=== PATIENT | female | born 1955 | race Caucasian/White ===

== ENCOUNTER 2020-01-22 06:41 | Day surgery (SDC) | payer OTHER ==
[~2020-01-22 06:41] MED LIST: Lactated Ringers 1,000 ML IV SCH; Lidocaine 1%/Sod Bicarbonate in NS 8.4% 1 ML Syringe IDERM PRN; Scopolamine 1.5 MG Transdermal Patch TOP SCH; Sodium Chloride 0.9% 10 ML Syringe FLUSH PRN
[2020-01-22] MEDS ORDERED: fentaNYL 100 MCG/2 ML SDV ONE (07:11)
[2020-01-22] MEDS ORDERED: Propofol 200 MG/20 ML SDV ONE (07:11)
[2020-01-22] MEDS ORDERED: Midazolam 1 MG/ML 2 ML SDV ONE (07:12)
[2020-01-22] MEDS ORDERED: Lidocaine 1% 4 ML ONE (07:14)
[2020-01-22] MEDS ORDERED: Succinylcholine/Sod PF 100 MG/5 ML SYRINGE IV ONE (07:14)
--- NOTE | 2020-01-22 07:34 | PCM.PREANE ---
Preanesthetic Assessment - Anesthesia/Transfusion/Family Hx Anesthesia History: Prior Anesthesia Without Reaction Transfusion History: No Prior Transfusion(s) Intubation History: Unknown - Review of Systems General: No Symptoms Pulmonary: No Symptoms Cardiovascular: No Symptoms Gastrointestinal: No Symptoms Neurological: No Symptoms Other: Reports: None - Physical Assessment NPO Status Date: 01/21/20 NPO Status Time: 22:00 Vital Signs: Last Vital Signs Temp 97.1 F 01/22/20 06:40 Pulse 71 01/22/20 06:40 Resp 16 01/22/20 06:40 BP 133/62 01/22/20 06:40 Pulse Ox 95 01/22/20 06:40 Height: 1.63 m Weight: 70.76 kg ASA Class: 2 Mental Status: Alert & Oriented x3 Airway Class: Mallampati = 2 Dentition: Reports: Normal Dentition Thyro-Mental Finger Breadths: 3 Mouth Opening Finger Breadths: 3 ROM/Head Extension: Full Lungs: Clear to Auscultation, Normal Respiratory Effort Cardiovascular: Regular Rate, Regular Rhythm - Lab Values: Laboratory Last Values COVID-19 PCR Not detected (NOT DETECT) 01/20/20 14:30 MRSA (PCR) Negative 01/09/20 09:58 - Allergies Allergies/Adverse Reactions: Allergies Allergy/AdvReac Type Severity Reaction Status Date / Time codeine Allergy Itching Verified 01/21/20 15:02 - Acknowledgements Anesthesia Type Planned: General Anesthesia, Regional Block (rt ISB preop) Pt an Appropriate Candidate for the Planned Anesthesia: Yes Alternatives and Risks of Anesthesia Discussed w Pt/Guardian: Yes Pt/Guardian Understands and Agrees with Anesthesia Plan: Yes PreAnesthesia Questionnaire HEENT History: Reports: Sinusitis Cardiovascular History: Reports: Other (See Below) Other Cardiovascular History: varicose veins Genitourinary History: Reports: UTI, Recurrent, Other (See Below) Other Genitourinary History: cystitis, dysuria, exploratory laparotomy [employer] History: Reports: , Other (See Below) Other OB/BYN History: , c section, menopausal, right break fibroadenoma removal Musculoskeletal History: Reports: Other (See Below) Other Musculoskeletal History: shoulder pain, right wrist ORIF with plate and screws Neurological History: Reports: Other (See Below) Other Neuro History: motion sickness Psychiatric History: Reports: Other (See Below) Other Psychiatric History: insomnia Endocrine/Metabolic History: Reports: Osteopenia Hematologic History: Reports: Anemia Immunologic History: Reports: None Oncologic (Cancer) History: Reports: None Dermatologic History: Reports: Other (See Below) Other Dermatologic History: candidal intertrigo - Infectious Disease History Infectious Disease History: Reports: Extended Spectrum Beta-Lactamase (ESBL) Other Infectious Disease History: + on 05/28/19 - Past Surgical History Head Surgeries/Procedures: Reports: None HEENT Surgical History: Reports: None Cardiovascular Surgical History: Reports: None Respiratory Surgical History: Reports: None GI Surgical History: Reports: Colonoscopy, Other (See Below) Other GI Surgeries/Procedures: umbilical hernia repair as Female Surgical History: Reports: Section, Tubal Ligation Neurological Surgical History: Reports: None Musculoskeletal Surgical History: Reports: None Oncologic Surgical History: Reports: None Dermatological Surgical History: Reports: None - SUBSTANCE USE Smoking Status *Q: Never Smoker Recreational Drug Use History: No - HOME MEDS Home Medications: Home Meds Acetaminophen/Diphenhydramine [Tylenol Pm Ex-Strength Caplet] 1 tab PO BEDTIME 01/21/20 [History] Alendronate Sodium 70 mg PO TH 01/21/20 [History] Betamethasone/Clotrimazole [Lotrisone] 1 dose TOP BID PRN 01/21/20 [History] Calcium Citrate 400 mg PO DAILY 01/21/20 [History] Cholecalciferol (Vitamin D3) [Vitamin D3] 5,000 unit PO DAILY 01/21/20 [History] atorvaSTATin Calcium [Atorvastatin Calcium] 20 mg PO BEDTIME 01/21/20 [History] Acetaminophen/HYDROcodone [Hart 325-5 MG] 1 - 2 tab PO Q6H PRN #40 tablet 01/22/20 [Rx] - CURRENT (IN HOUSE) MEDS Current Meds: Current Medications Lactated Ringer's (Ringers, Lactated) 1,000 mls @ 125 mls/hr IV ASDIRECTED YOANDY Stop: 01/22/20 23:00 Lidocaine/Sodium Bicarbonate (Buffered Lidocaine 1% In Ns 8.4%) 0.25 ml IDERM ONETIME PRN PRN Reason: Prior to IV Start Stop: 01/22/20 18:00 Scopolamine (Transderm-Scop) 1.5 mg TOP ONETIME YOANDY Stop: 01/22/20 18:00 Last Admin: 01/22/20 06:56 Dose: 1.5 mg Documented by: Sodium Chloride (Saline Flush) 10 ml FLUSH ASDIRECTED PRN PRN Reason: Keep Vein Open Stop: 01/22/20 18:00 Discontinued Medications Fentanyl (Sublimaze) Confirm Administered Dose 100 mcg .ROUTE .STK-MED ONE Stop: 01/22/20 07:12 Lidocaine HCl (Xylocaine-Mpf 1%) Confirm Administered Dose 4 mls @ as directed .ROUTE .STK-MED ONE Stop: 01/22/20 07:15 Midazolam HCl (Versed 1 Mg/Ml) Confirm Administered Dose 4 mg .ROUTE .STK-MED ONE Stop: 01/22/20 07:13 Propofol (Diprivan 20 Ml) Confirm Administered Dose 200 mg .ROUTE .STK-MED ONE Stop: 01/22/20 07:12
[2020-01-22] MEDS ORDERED: Ropivacaine 0.5% 5 MG/ML 30 ML SDV ONE (07:39)
[2020-01-22] MEDS ORDERED: Lactated Ringers 1,000 ML ONE (08:32)
[2020-01-22] MEDS ORDERED: Ondansetron 4 MG/2 ML SDV ONE (08:33)
[2020-01-22] MEDS ORDERED: ceFAZolin 1 GM Vial ONE (08:40)
[2020-01-22] MEDS ORDERED: fentaNYL 100 MCG/2 ML SDV IVPUSH PRN (09:02)
--- NOTE | 2020-01-22 09:08 | PCM.PRNOTE ---
- Free Text/Narrative Note: Postoperative regional pain control requested by surgeon. Pre-op Dx: Right Rotator cuff tear Surgical procedure: Right Rotator cuff repair with subacromial decompression Procedure: Rt Interscalene block with U/S guidance Requesting physician: Dr. Aquino Ct Risks and benefits discussed with the patient preoperatively including infection, bleeding, incomplete or failed block, possible nerve damage, local anesthetic toxicity. Chart reviewed, VS stable. Permit signed. Patient in preoperative room , stable , alert and awake. Time out performed at 07:55. Oxygen 2L via NC. Right side of the neck was prepped with Chloraprep x 1 and allowed to dry. Midazolam IV 2 mg given. Under aseptic technique, the brachial plexus was identified under ultrasound prior to needle insertion. Local infiltration with 2mls of 1% Lidocaine. 2" Stimuplex needle #22 G was inserted under US guidance. Neuromuscular response of biceps contraction and forearm twitching elicited at 0.6 mA. Under direct visualization of needle tip the injection of 0.5% Ropivacaine with 1:200k epinephrine, total of 25 m ls in divid ed doses, maintaining negative aspiration was completed without problems. No local anesthetic toxicity was noted. Patient is awake, stable and tolerated the procedure well. Please see the attached U/S images Time: 07:55 - 08:05
--- NOTE | 2020-01-22 10:34 | PCM.POSTAN ---
POST ANESTHESIA ASSESSMENT - MENTAL STATUS Mental Status: Somnolent - VITAL SIGNS Vital Signs: First set of VSs postoperatively: BP: 121/79, HR: 95, RR: 16, SpO2: 92% T: 96.6F Last Vital Signs Temp 96.1 F L 01/22/20 10:30 Pulse 85 01/22/20 10:30 Resp 20 01/22/20 10:30 BP 116/73 01/22/20 10:30 Pulse Ox 94 L 01/22/20 10:30 - RESPIRATORY Respiratory Status: Respiratory Rate WNL, Airway Patent, O2 Saturation Stable, Supplemental Oxygen - CARDIOVASCULAR CV Status: Pulse Rate WNL, Blood Pressure Stable - GASTROINTESTINAL GI Status: No Symptoms - PAIN Pain Score: 0 (post ISB) - POST OP HYDRATION Hydration Status: Adequate & Stable
--- NOTE | 2020-01-22 11:29 | PCM.OPNOTE ---
- General Post-Op/Procedure Note Date of Surgery/Procedure: 01/22/20 Operative Procedure(s): right shoulder video arthroscopy with rotator cuff repair, subacromial decompression, extensive debridement and biceps tenotomy Pre Op Diagnosis: right shoulder rotator cuff tear with impingement and biceps tendinopathy Post-Op Diagnosis: Same Anesthesia Technique: General ET Tube, Regional Block Primary Surgeon: Miles Dixon Anesthesia Provider: David [facility] Superintendent: Iris Salgado EBL in mLs: 5 Complications: None Condition: Good
--- NOTE | 2020-01-22 12:28 | PCM48HPAN ---
Post Anesthesia Note - EVALUATION WITHIN 48HRS OF ANESTHETIC Vital Signs in Normal Range: Yes Patient Participated in Evaluation: Yes Respiratory Function Stable: Yes Airway Patent: Yes Cardiovascular Function Stable: Yes Hydration Status Stable: Yes Pain Control Satisfactory: Yes Nausea and Vomiting Control Satisfactory: Yes Mental Status Recovered: Yes Vital Signs: Last Vital Signs Temp 96.1 F L 01/22/20 10:30 Pulse 66 01/22/20 11:12 Resp 17 01/22/20 11:12 BP 115/58 L 01/22/20 11:12 Pulse Ox 97 01/22/20 11:12 - COMMENTS/OBSERVATIONS Free Text/Narrative:: Patient is being discharged home.
[2020-01-23] MEDS: EPINEPHrine 1 MG/ML 30 ML MDV IV ONE ×2 (08:55→10:23)
--- NOTE | 2020-01-29 09:17 | OR ---
DATE OF OPERATION: 01/22/2020 SURGEON: Miles Dixon MD OPERATION PERFORMED: Right shoulder video arthroscopy with rotator cuff repair, subacromial decompression, extensive debridement, and biceps tenotomy. PREOPERATIVE DIAGNOSIS: Right shoulder rotator cuff tear with impingement and biceps tendinopathy. POSTOPERATIVE DIAGNOSIS: Right shoulder rotator cuff tear with impingement and biceps tendinopathy. ANESTHESIA: General endotracheal intubation with regional interscalene block. ANESTHESIA PROVIDER: Eli White MASTER [employer] YACHT: Iris Salgado PA-C ESTIMATED BLOOD LOSS: Less than 5 mL. COMPLICATIONS: None. CONDITION: Stable. DESCRIPTION OF PROCEDURE: The patient was identified in the preop holding area. Proper site was marked and identified by the surgeon. The patient was taken back to the operative theater, where after adequate anesthesia, the patient was placed in the lazy left lateral decubitus position. The patient had a wedge placed posteriorly. She was secured to the table. Right shoulder was then sterilely prepped and draped in the usual sterile fashion. OR time-out was performed. The patient received 2 g of IV Ancef. 12 pounds of traction was applied to the right upper extremity. A posterior incision was made. Scope trocar was introduced in the glenohumeral joint. With the use of a spinal needle, anterior portal was created from an outside-in technique. At this time, the patient was noted to have significant fraying as well as biceps tendinopathy. Minor amount of fraying of the labrum as well as significant synovitis was noted. The patient did have full-thickness rotator cuff tear of the supraspinatus at this time as well near the midportion. There were no signs of chondromalacia. At this time, biceps tenotomy was performed, and an extensive debridement of the synovitis as well as the labrum was done at this point. Attention was then turned to the subacromial space. The patient was noted to have a large amount of bursitis, and a bursectomy was then performed and debridement of the bursa. A lateral portal was then created with the use of a spinal needle, and a good bony bleeding bed was then created using a 4-0 full radius bur and a resector at the tear site. Two double-loaded anchors were then placed, 1 anteriorly and 1 posteriorly in the bed for medial row. No knots were tied. These were then brought out in crosswise fashion, and an anterior and posterior lateral roll was then completed at this time as well. I used 1 Arthrex and 1 [place] anchor for both medial and lateral. It was found to have adequate watertight repair of the rotator cuff. At this time, a subacromial decompression and acromioplasty was performed back to a smooth border with the posterior rim. Excess saline was drained from the shoulder, 3-0 nylon suture was used for closure of the portal incision. The patient was placed in a sterile soft dressing and a pillow sling and sent to PACU in stable condition. CÉSAR /[id number]
== END 2020-01-22 11:40 | disposition home or self-care (01) ==
LOC: JD.SDS 06:41
PROVIDERS: ATTEND Orthopaedic Surgery
DX: M75.121 Complete rotator cuff tear or rupture of right shoulder, not specified as traumatic (principal); M25.811 Other specified joint disorders, right shoulder; M65.811 Other synovitis and tenosynovitis, right shoulder; M75.51 Bursitis of right shoulder; M85.80 Other specified disorders of bone density and structure, unspecified site; Z88.6 Allergy status to analgesic agent; E78.5 Hyperlipidemia, unspecified; Z79.899 Other long term (current) drug therapy
CPT/HCPCS: 29823; 29826; 29827; 87635; 87641; A9270; C1713; J0330; J0690; J2001; J2250; J2370; J2405; J2704; J2795; J3010; J7120; 01630; 64415; U0002

== ENCOUNTER 2021-02-01 07:00 | Day surgery (SDC) | payer MEDICARE, BC ==
--- NOTE | 2021-01-28 09:22 | PCM.PREANE ---
Preanesthetic Assessment - Procedure Proposed Procedure: Screening Colonoscopy - Anesthesia/Transfusion/Family Hx Anesthesia History: Prior Anesthesia Without Reaction Type of Anesthesia Reaction: Other (see below) (History of motion sickness) Family History of Anesthesia Reaction: No Transfusion History: No Prior Transfusion(s) Intubation History: Unknown - Review of Systems General: No Symptoms Pulmonary: No Symptoms (ETOH: occasionally) Cardiovascular: No Symptoms (Elevated cholesterol) Gastrointestinal: No Symptoms Neurological: No Symptoms Other: Reports: Thyroid Problems (Hypothyroid) - Physical Assessment NPO Status Date: 01/31/21 NPO Status Time: 04:00 (prep) Vital Signs: HR: 74 Sat: 95% Temp: 98.7 B/P: 120/68 Resp: 16 Height: 1.63 m Weight: 70 kg ASA Class: 2 Mental Status: Alert & Oriented x3 Airway Class: Mallampati = 2 Dentition: Reports: Normal Dentition, Anthony(s), Caries Thyro-Mental Finger Breadths: 3 Mouth Opening Finger Breadths: 3 ROM/Head Extension: Full Lungs: Clear to Auscultation, Normal Respiratory Effort Cardiovascular: Regular Rate, Regular Rhythm, No Murmurs - Lab Values: All labs reviewed and noted and within acceptable ranges to proceed with scheduled procedure. - Imaging/EKG Impressions: EKG: SR rate=76, Mild left axis deviation. - Allergies Allergies/Adverse Reactions: Allergies Allergy/AdvReac Type Severity Reaction Status Date / Time codeine Allergy Itching Verified 01/28/21 12:25 - Anesthesia Plan Pre-Op Medication Ordered: None - Acknowledgements Anesthesia Type Planned: MAC Pt an Appropriate Candidate for the Planned Anesthesia: Yes Alternatives and Risks of Anesthesia Discussed w Pt/Guardian: Yes Pt/Guardian Understands and Agrees with Anesthesia Plan: Yes PreAnesthesia Questionnaire HEENT History: Reports: Sinusitis Cardiovascular History: Reports: Other (See Below) Other Cardiovascular History: varicose veins Respiratory History: Reports: None Genitourinary History: Reports: UTI, Recurrent, Other (See Below) Other Genitourinary History: cystitis, dysuria, exploratory laparotomy HISTOLOGY TECH History: Reports: , Other (See Below) Other OB/BYN History: , c section, menopausal, right break fibroadenoma removal Musculoskeletal History: Reports: Other (See Below) Other Musculoskeletal History: shoulder pain, right wrist ORIF with plate and screws Neurological History: Reports: Other (See Below) Other Neuro History: motion sickness Psychiatric History: Reports: Other (See Below) Other Psychiatric History: insomnia Endocrine/Metabolic History: Reports: Osteopenia Hematologic History: Reports: Anemia Immunologic History: Reports: None Oncologic (Cancer) History: Reports: None Dermatologic History: Reports: Other (See Below) Other Dermatologic History: candidal intertrigo - Infectious Disease History Infectious Disease History: Reports: Extended Spectrum Beta-Lactamase (ESBL) Other Infectious Disease History: + on 05/28/19 - Past Surgical History Head Surgeries/Procedures: Reports: None HEENT Surgical History: Reports: None Cardiovascular Surgical History: Reports: None Respiratory Surgical History: Reports: None GI Surgical History: Reports: Colonoscopy, Other (See Below) Other GI Surgeries/Procedures: umbilical hernia repair as Female Surgical History: Reports: Section, Tubal Ligation Neurological Surgical History: Reports: None Musculoskeletal Surgical History: Reports: None Oncologic Surgical History: Reports: None Dermatological Surgical History: Reports: None - HOME MEDS Home Medications: Home Meds Alendronate Sodium 70 mg PO TH 01/21/20 [History] Betamethasone/Clotrimazole [Lotrisone] 1 dose TOP BID PRN 01/21/20 [History] Calcium Citrate 400 mg PO DAILY 01/21/20 [History] Cholecalciferol (Vitamin D3) [Vitamin D3] 5,000 unit PO DAILY 01/21/20 [History] atorvaSTATin Calcium [Atorvastatin Calcium] 20 mg PO BEDTIME 01/21/20 [History] Acetaminophen/Diphenhydramine [Tylenol Pm Ex-Strength Caplet] 1 tab PO BEDTIME 01/28/21 [History] Cyanocobalamin (Vitamin B-12) [Vitamin B-12] 1,000 mcg PO DAILY 01/28/21 [History] Levothyroxine 25 mcg PO DAILY 01/28/21 [History] cloNIDine [Catapres] 0.1 mg PO BEDTIME 01/28/21 [History] - CURRENT (IN HOUSE) MEDS Current Meds: Current Medications Lactated Ringer's (Ringers, Lactated) 1,000 mls @ 125 mls/hr IV ASDIRECTED YOANDY Stop: 02/01/21 23:00 Lidocaine/Sodium Bicarbonate (Lidocaine 1%/Sod Bicarbonate In Ns 8.4% 1 Ml Syringe) 0.25 ml IDERM ONETIME PRN PRN Reason: Prior to IV Start Stop: 02/01/21 18:00 Sodium Chloride (Sodium Chloride 0.9% 10 Ml Syringe) 10 ml FLUSH ASDIRECTED PRN PRN Reason: Keep Vein Open Stop: 02/01/21 18:00
[~2021-02-01 07:00] MED LIST changes: +Lidocaine 1% 4 ML ONE; +Propofol 200 MG/20 ML SDV ONE; -Scopolamine 1.5 MG Transdermal Patch TOP SCH; +fentaNYL 100 MCG/2 ML SDV ONE
[2021-02-01] MEDS ORDERED: Ondansetron 4 MG/2 ML SDV ONE (07:58)
--- NOTE | 2021-02-01 08:17 | PCM.PRNOTE ---
- Free Text/Narrative Note: Date: 02/01/2021 Procedure: screening colonoscopy History: normal colonoscopy 10 years ago- maternal grandfather diagnosed with colon cancer in his 50s Endoscopist: Roland Miner MD Findings: excellent prep. No pathology noted. Detailed Report: The patient was taken to the endoscopy suite and placed in left lateral decubitus position. Timeout was performed and monitored anesthesia care was initiated. Visual inspection of the anus revealed no abnormality. Digital rectal exam was unremarkable. The colonoscope was inserted and advanced to the cecum with ease. The appendiceal orifice was visualized. The terminal ileum was intubated. Prep was excellent. The scope was slowly withdrawn and mucosal surfaces carefully inspected. No pathology was noted. There were no polyps or diverticula. No significant hemorrhoidal disease appreciated in the rectum. Air was suctioned from the distal colon and rectum prior to withdrawal of the scope. The patient tolerated the procedure well.
--- NOTE | 2021-02-01 08:23 | PCM48HPAN ---
Post Anesthesia Note - EVALUATION WITHIN 48HRS OF ANESTHETIC Vital Signs in Normal Range: Yes Patient Participated in Evaluation: Yes Respiratory Function Stable: Yes Airway Patent: Yes Cardiovascular Function Stable: Yes Hydration Status Stable: Yes Pain Control Satisfactory: Yes Nausea and Vomiting Control Satisfactory: Yes Mental Status Recovered: Yes Vital Signs: Last Vital Signs Temp 36.4 C 02/01/21 07:06 Pulse 74 02/01/21 07:06 Resp 16 02/01/21 07:06 BP 120/68 02/01/21 07:06 Pulse Ox 95 02/01/21 07:06
== END 2021-02-01 09:10 | disposition home or self-care (01) ==
LOC: JD.SDS 07:00
PROVIDERS: ATTEND Surgery
DX: Z12.11 Encounter for screening for malignant neoplasm of colon (principal); Z80.0 Family history of malignant neoplasm of digestive organs; E78.00 Pure hypercholesterolemia, unspecified; E03.9 Hypothyroidism, unspecified; G47.00 Insomnia, unspecified; E55.9 Vitamin D deficiency, unspecified; Z88.5 Allergy status to narcotic agent; Z79.899 Other long term (current) drug therapy; Z79.890 Hormone replacement therapy; Z98.890 Other specified postprocedural states; Z87.891 Personal history of nicotine dependence
CPT/HCPCS: G0105; J2405; J2704; J3010; J7120; 00812